=== PATIENT | male | born 1960 | race Two or more races ===

== ENCOUNTER 2020-02-17 20:44 | Inpatient (IN) | payer MEDICARE, OTHER ==
[~2020-02-17] VITALS: Ht 170.2 cm; Wt 85.3 kg
[2020-02-17] MEDS ORDERED: AMLO10TA4 PO (21:26)
[2020-02-17] MEDS ORDERED: QUET200T PO (21:27)
[2020-02-17] MEDS ORDERED: RISP1TAB97 PO (21:28)
[2020-02-17] MEDS ORDERED: RISP3TAB61 PO (21:29)
[2020-02-17] MEDS ORDERED: MAG HYDROX/AL HYDROX/SIMETH 30 ML UDC PO PRN (21:30)
[2020-02-17] MEDS ORDERED: ACETAMINOPHEN 325 MG TABLET PO PRN (21:30)
[2020-02-17] MEDS ORDERED: VENL150C58 PO (21:30)
[2020-02-17] MEDS ORDERED: MAGNESIUM HYDROXIDE 30 ML UDC PO PRN (21:30)
[2020-02-17] MEDS ORDERED: OLAN15TA3 PO (21:31)
[2020-02-17] MEDS: clonazePAM 0.5 MG TABLET PO PRN (22:08)
--- NOTE | 2020-02-17 22:08 | NUR ---
RN NOTES : ANXIETY PT. C/O ANXIETY KLONOPIN 0.5 MG PO PRN GIVEN PER PT. REQUEST , WILL CONTINUE TO MONITOR.
[2020-02-17 22:56] VITALS: BP 123/76
--- NOTE | 2020-02-17 23:28 | NUR ---
ADMISSION NOTES: ADMITTED THIS 59Y/O MALE PATIENT ADMIT FROM [facility] , ADMITTED TO GPS 5150 HOLD DTS, PER HOLD SI , DTS AND STATING THAT HE HAS BEEN FORGETFUL LATELY , HE SAYS DEPRESSED AND HEARS VOICES AND SEES THINGS SOME TIMES,UPON FACE TO FACE ASSESSMENT PATIENT IS A&O X 1,2, FLAT AFFECT , BLUNTED AFFECT,UNCOOPERTIVE ,ANXIOUS ,PARANOID , DISORGNIZED ,DISHELVED, DEPREESED ,POOR HYGINE ,EASILY GETS AGITATED, POOR EYE CONTACT , PT. STATED THAT HE EXPERIENCES AH AND VH , BIZARRE BEHAVIOR ,DENIES SI /HI AT THIS TIME, PT. IS POOR HISTORIAN, POOR INSIGHT ,POOR JUDGEMENT , PT. REFUSED TO SIGNS ADMISSION CONSENT PAPERS, DUE TO MENTAL STATUS , REFUSED SHOWER AND REFUSED CHANGE TO THE HOSPITAL GOWN, DUE TO MENTAL STATUS , PT. REFUSED FULL BODY SKIN ASSESSMENT AND PICTURES TAKEN, ENCOURAGED X3 RISKS BENEFITS EXPLINED , PT. STRONGLY REFUSED ,BOTH MD AWARE AND NOTIFIED OF THE ADMISSION, BELONGINGS CONTRABAND WERE DONE ,PT. RIGHTS DISCUSS BY INVOICE MACHINE OPERATOR , PROVIDE THE PT. WITH HANDBOOK, AND MEDICATIONS GUIDE, ENVIRONMENTAL SAFETY CHECK DONE, ENCOURAGED PT. VERBALIZED ANY FEELING CONCERN TO STAFF, ORIENT TO UNIT POLICY, NO ACUTE DISTRESS NOTED,VITAL SIGNS WNL ,DENIES ANY PAIN AT THIS TIME,WILL CONTINUE TO MONITOR FOR Q15 SAFETY AND BEHAVIOR.
--- NOTE | 2020-02-17 23:43 | NUR ---
RN NOTES : REFUSAL VACCINE PT. REFUSED INFLUENZA VACCINE ,ENCOURAGED X3, PT. STRONGLY REFUSED , AND PT. BEHAVIOR VERY UNCCOERTIVE AGGRESSIVE , I DONT WANTS ANY VACCINE , WILL CONTINUITY WITH CARE.
--- NOTE | 2020-02-17 23:46 | NUR ---
RN NOTES : PT. REFUSED SKIN ASSESSMENT AND PICTURES TAKEN ,ENCOURAGED X3 PT. STRONGLY REFUSED , AND PT. BEHAVIOR VERY UNCCOERTIVE AGGRESSIVE , PER PT. STATED MY SKIN IS FINE ,WILL CONTINUITY WITH CARE.
--- NOTE | 2020-02-18 06:30 | NUR ---
GPS RN NOTES: PT. RESTING IN HIS ROOM, PT.REMAINED STABLE THROUGHOUT SHIFT, NO S/S OF DISTRESS NOTED , ALL CARE NEEDS MET ANTICIPATED. MED COMPLIANT ,PT. BEHAVIOR ,PARANOID EASILY AGITATED, NEEDS FREQUENTLY REDIRECTIONS ,WILL CONTINUE TO MONITOR FOR SAFETY BEHAVIOR, AND ENDORSE TO AM SHIFT FOR CONTINUITY OF CARE.
[2020-02-18 06:51] VITALS: BP 123/75
[2020-02-18 06:52] LABS: BASOPHILS % (AUTO) 0.5 % (0.0-2.0); EOSINOPHILS % (AUTO) 4.9 % (0.0-6.0); HEMATOCRIT 43 % (39-51); HEMOGLOBIN 14.5 g/dL (13.5-17.5); LYMPHOCYTES % (AUTO) 23.2 % (20.0-44.0); MEAN CORPUSCULAR HGB CONC 34 g/dl (31.0-36.0); MEAN CORPUSCULAR VOLUME 92 fL (80-96); MONOCYTES # (AUTO) 0.9 /CMM (0.1-1.30); MONOCYTES % (AUTO) 10.9 % (2.0-12.0); NEUTROPHILS # (AUTO) 5.1 /CMM (1.8-8.9); NEUTROPHILS % (AUTO) 60.5 % (43.0-81.0); PLATELET COUNT (AUTO) 236 /CMM (150-450); RED BLOOD CELL COUNT(AUTO) 4.65 MIL/uL (4.5-6.0); WHITE BLOOD COUNT (AUTO) 8.5 K/uL (4.3-11.0)
[2020-02-18 07:05] LABS: CALCIUM, SERUM 8.9 mg/dL (8.5-10.1); CREATININE 0.9 mg/dL (0.6-1.3); POTASSIUM 3.9 mmol/L (3.5-5.1)
[2020-02-18 08:26] VITALS: BP 128/71
[2020-02-18] MEDS: VENLAFAXINE XR 75 MG CAP.SR.24H PO SCH (15:56)
[2020-02-18 16:01] VITALS: BP 134/88
[2020-02-18 20:11] VITALS: BP 129/76
[2020-02-18] MEDS: OLANZAPINE 10 MG TABLET PO SCH (21:13)
[2020-02-18] MEDS: TEMAZEPAM 7.5 MG CAPSULE PO PRN (21:42)
--- NOTE | 2020-02-18 21:42 | NUR ---
GPS-RN NOTE: INSOMNIA PATIENT C/O INABILITY TO SLEEP. ADMINISTERED RESTORIL 7.5MG PO ORDERED. WILL CONTINUE TO MONITOR FOR PATIENT'S SAFETY.
[2020-02-19 08:00] VITALS: BP 112/81
[2020-02-19] MEDS: VENLAFAXINE XR 75 MG CAP.SR.24H PO SCH (08:25)
[2020-02-19] MEDS: AMLODIPINE BESYLATE 10 MG TABLET PO SCH (08:26)
[2020-02-19 16:00] VITALS: BP 111/76
[2020-02-19 19:57] VITALS: BP 136/90
[2020-02-19] MEDS: OLANZAPINE 10 MG TABLET PO SCH (21:15)
--- NOTE | 2020-02-19 21:30 | NUR ---
GPS RN NOTE :REFUSED SKIN ASSESSMENT PATIENT REFUSED WEEKLY SKIN ASSESSMENT AND PICTURES TONIGHT. ENCOURAGED X3 BUT STRONGLY REFUSED, STATED," I AM OK & MY SKIN IS GOOD TOO. YOU DON'T NEED TO CHECK IT, I NEED TO REST." WILL CONTINUE TO MONITOR FOR ANY CHANGES.
[2020-02-19] MEDS: TEMAZEPAM 7.5 MG CAPSULE PO PRN (22:11)
--- NOTE | 2020-02-19 22:12 | NUR ---
GPS RN NOTE: INSOMNIA PATIENT VERBALIZED THAT HE IS UNABLE TO SLEEP & WANTED TO TAKE SLEEPING MEDICINE. PRN RESTORIL 7.5 MG PO GIVEN. WILL REASSESS FOR EFFECTIVENESS.
[2020-02-20 08:11] VITALS: BP 145/91
[2020-02-20] MEDS: AMLODIPINE BESYLATE 10 MG TABLET PO SCH (08:17)
[2020-02-20] MEDS ORDERED: VENLAFAXINE XR 75 MG CAP.SR.24H PO SCH (09:00)
--- NOTE | 2020-02-20 14:26 | NUR ---
INITIAL DISCHARGE PLAN: Patient is currently homeless. Patient would like a group home facility upon discharge. Patient's sister, Kaelyn Rosario ([phone]) is involved in the patient's care. SW will continue to work with patient, family, and MD to ensure a safe and proper discharge plan.
--- NOTE | 2020-02-20 14:27 | NUR ---
FAMILY CONTACT: SW spoke with patient's sister, Kaelyn Rosario ([phone]) who is involved in the patient's care and discussed treatment and discharge plan. This social media designer shared with Kaelyn that the patient would like SNF placement placement upon discharge. Kaelyn is agreeable with this plan.
--- NOTE | 2020-02-20 14:51 | NUR ---
Brief Substance Abuse Intervention: Patient was provided with a brief substance abuse intervention and referred to the following substance abuse programs: [facility]stance [facility] Self[facility] ([phone]); [facility] [address] [place] [address] ([phone]); [facility] [address] [facility] [address] ([phone]); [facility] ([phone]); [facility] ([phone]); [facility] ([phone]); [facility] ([phone]).
--- NOTE | 2020-02-20 15:13 | NUR ---
SNF REFERRAL: KARLA faxed patient's referral packet to [facility]- attention to [facility] receiving coordinator for review and possible placement.
[2020-02-20 16:06] VITALS: BP 130/84
[2020-02-20] MEDS: clonazePAM 0.5 MG TABLET PO PRN (18:30)
--- NOTE | 2020-02-20 18:30 | NUR ---
RN NOTE: ANXIETY PT PACING HALLWAYS. REQUESTING MEDICATION FOR ANXIETY. MEDICATED CLONAZEPAM 0.5 MG PO PRN
[2020-02-20 20:35] VITALS: BP 129/82
[2020-02-20] MEDS: OLANZAPINE 5 MG TABLET PO SCH (21:24)
[2020-02-20] MEDS: TEMAZEPAM 7.5 MG CAPSULE PO PRN (22:01)
--- NOTE | 2020-02-20 22:02 | NUR ---
GPS RN NOTE: PT REQUESTED FOR RESTORIL FOR SLEEP. RESTORIL 7.5MG/1CAP GIVEN PO PRN ORDERED at 2201. WILL CONTINUE TO MONITOR.
--- NOTE | 2020-02-21 06:46 | NUR ---
GPS RN CLOSING NOTE: PT IS AWAKE A/O, LAYING ON BED. SLEPT 7HR THIS SHIFT. NO S/S OF DISTRESS. RESPIRATION EVEN AND UNLABORED WITH EQUAL RISE AND FALL OF THE CHEST ON ROOM AIR. ALL PT CARE NEEDS MET ANTICIPATED. BED IS LOCKED AND IN LOWEST POSITION. WILL CONTINUE TO MONITOR AND ENDORSE TO AM SHIFT.
[2020-02-21 08:00] VITALS: BP 124/72
[2020-02-21] MEDS: AMLODIPINE BESYLATE 10 MG TABLET PO SCH (08:17)
[2020-02-21] MEDS: VENLAFAXINE XR 150 MG CAP.SR.24H PO SCH (08:18)
--- NOTE | 2020-02-21 08:59 | NUR ---
SNF Referral: SW faxed patient's referral packet to [facility] (F:[phone]) attention to Ally and will review clinicals for possible placement.
--- NOTE | 2020-02-21 09:00 | NUR ---
SNF Contact: SW received a phone call from Lisbeth at [facility] ) who stated they are currently closed because of COVID.
--- NOTE | 2020-02-21 09:00 | NUR ---
RN NOTE- PT ALERT ORIENTED CALM DIRECTABLE, INTERACTIVE VISIBLE ON UNIT DENIES ALL AT THIS TIME STATES "HAD SOME THOUGHTS ABOUT SI BEFORE". MED COMPLIANT NEEDS ATTENDED, [facility] CONTACT INITIATES
--- NOTE | 2020-02-21 10:56 | NUR ---
SNF Referral: Gwendolyn ([phone]) (F:[phone]) contacted this junior copywriter and stated pt is accepted.
--- NOTE | 2020-02-21 10:57 | NUR ---
SNF Contact: Gwendolyn rodriguez ([phone]) (F:[phone]) contacted this commercial real estate underwriter and stated pt is accepted.
[2020-02-21] MEDS: clonazePAM 0.5 MG TABLET PO PRN ×2 (12:53→19:41)
--- NOTE | 2020-02-21 12:53 | NUR ---
RN NOTE- PT C/O ANXIETY. CLONAZEPAM 0.5 MG GIVEN
--- NOTE | 2020-02-21 13:07 | NUR ---
SNF Contact: This lead technical writer contacted [facility] ([phone]) and spoke with admin Chica who stated they are not admitting patients due to COVID.
--- NOTE | 2020-02-21 13:08 | NUR ---
FAMILY CONTACT: SW spoke with patient's sister, Kaelyn Rosario ([phone]) and sister stated if this resume writer can try [facility] ([phone]) and they stated they are on lockdown due to COVID. Per Kaelyn, she stated we can move forward with [facility].
--- NOTE | 2020-02-21 14:30 | NUR ---
KARLA Discharge Planning: This public relations writer met with pt and discussed placement options. This public relations writer stated pt is accepted at [facility]. Pt agreed with this facility.
--- NOTE | 2020-02-21 14:34 | NUR ---
Individual Intervention: This job specification writer met with pt to conduct brief counseling and discuss presenting problem SI. Pt stated he no longer feels SI and just wants a place. This job specification writer explained multiple times that this job specification writer found pt a place called [facility]. Pt appeared happy afterwards. Pt stated "thank you for helping me this decreased my stress level". This job specification writer actively listened and provided emotional support.
--- NOTE | 2020-02-21 15:10 | NUR ---
SW Note: Pt asked this story writer to locate his items from [facility]. Per pt's request this story writer will contact [facility].
--- NOTE | 2020-02-21 15:10 | NUR ---
[facility] Contact: This write Roberto from [facility] ([phone]) and per pt's request this personal lines underwriter contacted to see if they have his items. Roberto stated she would contact this personal lines underwriter back.
--- NOTE | 2020-02-21 15:43 | NUR ---
[facility] Contact: This write Roberto from [facility] ([phone]) and per pt's request this television writer contacted to see if they have his items. Roberto contacted this television writer and stated pt was in the Detox program and will receive a call from the center who will confirm if pt's items are there.
[2020-02-21 16:00] VITALS: BP 113/73
--- NOTE | 2020-02-21 19:41 | NUR ---
GPS RN NOTE: ANXIETY PT C/O OF FEELING RESTLESS, SHAKY, ANXIOUS, ASKED FOR A KLONOPIN, VSS, ADMIN KLONOPIN 0.5 MG PRN @ 194 WILL REASSESS AND CONTINUE TO M,ONITOR Q15MIN FOR SAFETY AND BEHAVIOR.
[2020-02-21 20:00] VITALS: BP 119/71
[2020-02-21] MEDS: OLANZAPINE 5 MG TABLET PO SCH (21:15)
[2020-02-21] MEDS: TEMAZEPAM 7.5 MG CAPSULE PO PRN (21:45)
--- NOTE | 2020-02-21 21:45 | NUR ---
GPS RN NOTE: INSOMNIA PT C/O OF INSOMNIA REQUESTED SLEEPING PILL, VSS, ADMIN RESTORIL 7.5MG PRN @ 5, WILL REASSESS AND CONTINUE TO MONITOR Q15MIN FOR SAFETY AND BEHAVIOR.
[2020-02-22 08:00] VITALS: BP 132/85
[2020-02-22] MEDS: VENLAFAXINE XR 150 MG CAP.SR.24H PO SCH (08:58)
[2020-02-22] MEDS: AMLODIPINE BESYLATE 10 MG TABLET PO SCH (08:58)
--- NOTE | 2020-02-22 10:00 | NUR ---
NURSING NOTE: PT REQUESTING SOMETHING TO CALM DOWN, STATING 'I'M FEELING ANXIOUS, I NEED SOMETHING TO HELP ME CALM DOWN", ADMINISTERED KLONOPIN 0.5 MG PER MD ORDER. WILL CONTINUE TO MONITOR FOR SAFETY AND BEHAVIOR.
[2020-02-22] MEDS: clonazePAM 0.5 MG TABLET PO PRN (10:05)
[2020-02-22 16:00] VITALS: BP 130/74
[2020-02-22 19:39] VITALS: BP 125/83
[2020-02-22] MEDS: OLANZAPINE 5 MG TABLET PO SCH (21:19)
[2020-02-22] MEDS: TEMAZEPAM 7.5 MG CAPSULE PO PRN (21:52)
--- NOTE | 2020-02-22 21:52 | NUR ---
GPS RN NOTE: PT REQUESTED FOR RESTORIL FOR SLEEP. RESTORIL 7.5MG/1CAP GIVEN PO PRN ORDERED at 2152. WILL CONTINUE TO MONITOR.
--- NOTE | 2020-02-23 06:52 | NUR ---
GPS RN CLOSING NOTE: PT IS CURRENTLY SLEEPING. SLEPT 8HR THIS SHIFT. NO S/S OF DISTRESS. RESPIRATION EVEN AND UNLABORED WITH EQUAL RISE AND FALL OF THE CHEST ON ROOM AIR. ALL PT CARE NEEDS MET ANTICIPATED. BED IS LOCKED AND IN LOWEST POSITION. WILL CONTINUE TO MONITOR AND ENDORSE TO AM SHIFT.
[2020-02-23 08:00] VITALS: BP 126/80
[2020-02-23] MEDS: VENLAFAXINE XR 150 MG CAP.SR.24H PO SCH (08:28)
[2020-02-23] MEDS: AMLODIPINE BESYLATE 10 MG TABLET PO SCH (08:29)
[2020-02-23] MEDS: clonazePAM 0.5 MG TABLET PO PRN ×2 (11:07→17:40)
--- NOTE | 2020-02-23 11:07 | NUR ---
RN-CO: PATIENT REQUESTED FOR KLONOPIN TABLET FOR ANXIETY.
--- NOTE | 2020-02-23 14:13 | NUR ---
KARLA HEARING NOTIFICATION: Patient had probable cause hearing today and it was upheld for danger to self and grave disability.
[2020-02-23 16:00] VITALS: BP 114/69
--- NOTE | 2020-02-23 17:40 | NUR ---
RN-CO: PATIENT REQUESTED FOR KLONOPIN FOR ANXIETY.
[2020-02-23] MEDS: OLANZAPINE 5 MG TABLET PO SCH (21:19)
[2020-02-23] MEDS: TEMAZEPAM 7.5 MG CAPSULE PO PRN (22:22)
--- NOTE | 2020-02-23 22:24 | NUR ---
RN NOTS : PATIENT C/O UNABLE TO SLEEP. ADMINISTERED RESTORIL 7.5MG PO ORDERED. WILL CONTINUE TO MONITOR FOR PATIENT'S SAFETY.
[2020-02-23 22:52] VITALS: BP 128/76
[2020-02-24] MEDS: VENLAFAXINE XR 150 MG CAP.SR.24H PO SCH (08:29)
[2020-02-24] MEDS: AMLODIPINE BESYLATE 10 MG TABLET PO SCH (08:29)
[2020-02-24 08:41] VITALS: BP 117/69
--- NOTE | 2020-02-24 09:00 | NUR ---
RN NOTE- PT ALERT ORIENTED TO PERSON PLACE TIME PURPOSE, CALM DIRECTABLE INTERACTIVE MED COMPLIANT DENIES ALL
[2020-02-24 16:06] VITALS: BP 115/57
[2020-02-24] MEDS: clonazePAM 0.5 MG TABLET PO PRN (17:50)
--- NOTE | 2020-02-24 17:50 | NUR ---
RN NOTE- PT W ANXIETY. REQUESTING RX. KLONOPIN 0.5 MG GIVEN
[2020-02-24 20:03] VITALS: BP 132/84
[2020-02-24] MEDS: OLANZAPINE 5 MG TABLET PO SCH (21:05)
[2020-02-24] MEDS: TEMAZEPAM 7.5 MG CAPSULE PO PRN (22:08)
--- NOTE | 2020-02-24 22:09 | NUR ---
LYUDMILA NOTS :INSOMNIA PATIENT C/O UNABLE TO SLEEP. ADMINISTERED RESTORIL 7.5MG PO ORDERED. WILL CONTINUE TO MONITOR FOR PATIENT'S SAFETY.
--- NOTE | 2020-02-25 07:38 | NUR ---
GPS RN NOTES: PT. RESTING IN HIS ROOM, PT.REMAINED STABLE THROUGHOUT SHIFT, NO S/S OF DISTRESS NOTED , ALL CARE NEEDS MET ANTICIPATED. MED COMPLIANT ,WILL CONTINUE TO MONITOR FOR SAFETY BEHAVIOR, AND ENDORSE TO AM SHIFT FOR CONTINUITY OF CARE.
[2020-02-25 08:00] VITALS: BP 132/78
[2020-02-25] MEDS: VENLAFAXINE XR 150 MG CAP.SR.24H PO SCH (09:03)
[2020-02-25] MEDS: AMLODIPINE BESYLATE 10 MG TABLET PO SCH (09:03)
[2020-02-25] MEDS: clonazePAM 0.5 MG TABLET PO PRN ×2 (12:48→19:59)
--- NOTE | 2020-02-25 12:48 | NUR ---
RN NOTE-C/O ANXIOUSNESS / RESTLESS. KLONOPIN 0.5 MG GIVEN
[2020-02-25 16:00] VITALS: BP 116/64
[2020-02-25 19:58] VITALS: BP 124/75
--- NOTE | 2020-02-25 20:00 | NUR ---
GPS RN NOTE: PT. RESTLESS AND REPORTED ANXIETY. KLONOPIN 0.5MG/1TAB GIVEN PO AT 1999. WILL CONTINUE TO MONITOR
[2020-02-25] MEDS: OLANZAPINE 5 MG TABLET PO SCH (21:23)
--- NOTE | 2020-02-26 06:44 | NUR ---
GPS RN CLOSING NOTE: PT IS CURRENTLY SLEEPING. SLEPT 7HR THIS SHIFT. NO S/S OF DISTRESS. RESPIRATION EVEN AND UNLABORED WITH EQUAL RISE AND FALL OF THE CHEST ON ROOM AIR. ALL PT CARE NEEDS MET ANTICIPATED. BED IS LOCKED AND IN LOWEST POSITION. WILL CONTINUE TO MONITOR AND ENDORSE TO AM SHIFT.
[2020-02-26 08:00] VITALS: BP 116/78
[2020-02-26] MEDS: AMLODIPINE BESYLATE 10 MG TABLET PO SCH (08:59)
[2020-02-26] MEDS: VENLAFAXINE XR 150 MG CAP.SR.24H PO SCH (08:59)
[2020-02-26 16:00] VITALS: BP 129/92
[2020-02-26] MEDS: BLOOD SUGAR DIAGNOSTIC 1 EACH STRIP IN SCH (18:36)
[2020-02-26] MEDS: clonazePAM 0.5 MG TABLET PO PRN (20:12)
--- NOTE | 2020-02-26 20:14 | NUR ---
GPS RN NOTE: PT. RESTLESS AND REPORTED ANXIETY AND REQUESTED FOR MEDICATION. KLONOPIN 0.5MG/1TAB GIVEN PO AT 2011. WILL CONTINUE TO MONITOR Addendum: 02/26/20 at 2248 by JESUS ALBERTO PANG RN GPS RN NOTE: PT NOTES AND MEDS WERE WRONGLY CHARTED UNDER SAMUEL'S ACCOUNT.
[2020-02-26 20:30] VITALS: BP 130/91
[2020-02-26] MEDS ORDERED: BLOOD SUGAR DIAGNOSTIC 1 EACH STRIP IN ONE (22:00)
[2020-02-26] MEDS: OLANZAPINE 5 MG TABLET PO SCH (22:07)
--- NOTE | 2020-02-27 06:35 | NUR ---
GPS RN CLOSING NOTE: PT IS CURRENTLY SLEEPING. SLEPT 7HRS THIS SHIFT. PATIENT REFUSED WEEKLY SKIN ASSESSMENT. NO S/S OF DISTRESS. RESPIRATION EVEN AND UNLABORED WITH EQUAL RISE AND FALL OF THE CHEST ON ROOM AIR. ALL PT CARE NEEDS MET ANTICIPATED. BED IS LOCKED AND IN LOWEST POSITION. WILL CONTINUE TO MONITOR AND ENDORSE TO AM SHIFT.
[2020-02-27 08:00] VITALS: BP 103/60
[2020-02-27] MEDS: VENLAFAXINE XR 150 MG CAP.SR.24H PO SCH (08:54)
[2020-02-27] MEDS: AMLODIPINE BESYLATE 10 MG TABLET PO SCH (08:55)
[2020-02-27] MEDS: BLOOD SUGAR DIAGNOSTIC 1 EACH STRIP IN SCH ×2 (09:04→16:32)
--- NOTE | 2020-02-27 09:04 | NUR ---
rn notes BS of 188, patient refused insulin coverage at this time x3
--- NOTE | 2020-02-27 11:54 | NUR ---
SNF Contact: KARLA contacted Gwendolynalejandro rodriguez ([phone]) from [facility] to inform her pt will be discharging tomorrow Thursday02/28/20. Gwendolyn agreed with discharge plan. Addendum: 02/27/20 at 1159 by LEXY ACOSTA [facility] Address: [address] [place] [address]
--- NOTE | 2020-02-27 11:59 | NUR ---
FAMILY CONTACT: KARLA spoke with patient's sister, Kaelyn Marquez ([phone]) and left a voicemail informing her pt will be discharged tomorrow Thursday02/28/20 to [facility] Address: [address] [place] [address] . Addendum: 02/27/20 at 1203 by LEXY ACOSTA Sister returned call and agrees with discharge plan.
[2020-02-27] MEDS: clonazePAM 0.5 MG TABLET PO PRN (15:46)
[2020-02-27 16:00] VITALS: BP 127/92
--- NOTE | 2020-02-27 16:32 | NUR ---
rn notes bs of 185. patient refused coverage at this time x3.
[2020-02-27 19:37] VITALS: BP 128/65
[2020-02-27] MEDS: OLANZAPINE 5 MG TABLET PO SCH (21:00)
[2020-02-27 22:07] VITALS: BP 144/60
[2020-02-27] MEDS: TEMAZEPAM 7.5 MG CAPSULE PO PRN (22:10)
--- NOTE | 2020-02-27 22:11 | NUR ---
GPS RN NOTES: INSOMNIA PT C/O UNABLE TO SLEEP. PT REQUESTED SLEEPING MEDICATION. VITALS CHECKED WNL. OFFERED RESTORIL PRN ORDERED. PT AGREED AND TOLERATED MEDICATION WELL. CONTINUE TO MONITOR.
[2020-02-28 08:00] VITALS: BP 105/68
[2020-02-28 08:29] VITALS: BP 105/68
[2020-02-28] MEDS: AMLODIPINE BESYLATE 10 MG TABLET PO SCH (08:29)
[2020-02-28] MEDS: VENLAFAXINE XR 150 MG CAP.SR.24H PO SCH (08:29)
[2020-02-28] MEDS: BLOOD SUGAR DIAGNOSTIC 1 EACH STRIP IN SCH (08:29)
--- NOTE | 2020-02-28 10:19 | NUR ---
Discharge Note: Pt will be discharged at 12:00pm via [facility] to [facility] Address: [address] [place] [address] . Patient's sister, Kaelyn Marquez ([phone]) has been notified. Upon discharge, the pt appears to be in a euthymic mood and presents with a calm affect. Pt states that he is content about his placement. Pt appears to be alert and oriented x4 (time, place, self and situation). Pt appears to be ambulatory with a steady gait. Pt denies both suicidal and homicidal ideation as well as auditory and visual hallucinations. Pt appears to be well groomed and appropriately dressed. Pt signed the Choice of Vendor form and homeless waiver which was placed in the chart. Pt was given homeless resources such as including shelters, food santiago, showers, hot meals, mental health clinics, health clinics and substance abuse referrals. The multidisciplinary exit care form was done, printed, signed, and given to the patient. Pt will be under the care of psychiatrist, Dr. Richardson, [place] [address] [place] [address] Phone: and supervisor grading, Dr Arce, located at [address] [address] [phone].
--- NOTE | 2020-02-28 12:42 | NUR ---
GPS DIRECTOR MEDICAL AFFAIRS NOTE: PATIENT DISCHARGED TODAY AT 1220 TO [facility] REPORT GIVEN TO MEENAKSHI RN IN THE FACILITY PATIENT LEFT THE UNIT VIA AMBULANCE . VSS. NO ACUTE DISTRESS NOTED. NO COMPLAINTS. COMPLIANT WITH MEDICATION MANAGEMENT. COOPERATIVE WITH PLAN OF CARE. PSYCHIATRIC TREATMENT PLANS MET. MEDICAL TREATMENT PLANS DEFERRED FOR CONTINUAL MONITORING. DENIES SI/HI/VAH AT THE TIME OF DISCHARGE. PATIENT REFUSED SKIN ASSESSMENT REFUSED INFLUENZA VACCINE AND PNEUMONIA VACCINE . EDUCATED PATIENT ABOUT AFTERCARE WITH COPY PROVIDED. RETURNED PERSONAL BELONGINGS TO PATIENT. MEDICATIONS RECONCILED WITH ALONG WITH PSYCHIATRIC DISCHARGE ORDERS. DISCHARGE PAPERWORK SIGNED. FOR FOLLOW UP WITH PSYCHIATRIST AND TELEGRAPH OFFICE ROUTE AIDE COMPLIANT WITH MEDICATIONS AND TX. ORDER PT DISCHARGE , DISCONTINUE HOLD PER DR. MADRIGAL.
== END 2020-02-28 12:20 | DRG 885 ==
LOC: GPS 20:44
PROVIDERS: ADMIT Psychiatry & Neurology Psychiatry
DX: F33.3 Major depressive disorder, recurrent, severe with psychotic symptoms (principal); F23 Brief psychotic disorder; I10 Essential (primary) hypertension; F10.20 Alcohol dependence, uncomplicated; E11.9 Type 2 diabetes mellitus without complications
CPT/HCPCS: 36415; 80048-TC; 80061-TC; 82962-TC; 85025-TC; 87081-TC; 97110-TC; 97116-TC; 97530-TC